=== PATIENT | male | born 2000 | race Caucasian/White ===

== ENCOUNTER 2025-01-30 10:53 | Emergency (ER) | payer OTHER, SELFPAY ==
[2025-01-30 11:03] VITALS: BP 135/74; PULSE 88; RESP 20; TEMP 36.5; O2SAT 98
--- NOTE | 2025-01-30 11:31 | ED_ITS ---
HPI - URI/Sore Throat General Chief Complaint: Upper Respiratory Infection Stated Complaint: Stopped Up Time Seen by Provider: 01/30/25 11:25 Source: patient, RN notes reviewed and old records reviewed Mode of arrival: ambulatory Limitations: no limitations History of Present Illness HPI Narrative: 24 year old male presents to [facility] care with complaints of over 1 week duration of cough with expectoration of yellow sputum, nasal congestion and drainage with sinus pressure and some pain to his face. Patient reports no know fevers chills or sweats. Patient reports that he has been taking DayQuil,NyQuil and Mucinex for his symptoms. MD elicited complaint: cough, rhinorrhea, nasal congestion and sinus pain Onset (ago): week(s) (over1 week) Severity: moderate Description of mucous: yellow Able to tolerate fluids by mouth: Yes Treatments prior to arrival: other (DayQuil and Mucinex) Related Data Allergies Allergy/AdvReac Type Severity Reaction Status Date / Time No Known Allergies Allergy Verified 01/30/25 11:07 Review of Systems Review of Systems: CONSTITUTIONAL: Reports malaise, chills, sweats, no known fever. EYES: Denies visual changes, redness, or discharge. ENT: Reports rhinorrhea, congestion, sinus pain, no otalgia and no sore throat. CARDIOVASCULAR: Denies chest pain, palpitations, or edema. RESPIRATORY: Reports productive cough.? Denies dyspnea. GASTROINTESTINAL: Denies abdominal pain, nausea, vomiting, diarrhea SKIN: Denies rash or itching. MUSCULOSKELETAL: Denies myalgia. NEUROLOGIC: Denies headache. All systems reviewed & are unremarkable except as noted in HPI and below PMFSH Surgical History Surgical History History of tonsillectomy History of surgery on lower extremity right leg for spiral fracture Social History Social History Smoking status: Current every day smoker Tobacco type: e-cigarettes/vaping Alcohol intake: current Alcohol use details: social Substance use type: does not use Living arrangements: with family Gender identity (if verbalized by the patient): Male Comments At time of signature, agree with nursing past medical, surgical, social and family history. There is no relevant family history pertinent to the presenting complaint Exam Narrative: GENERAL: Well-appearing, well-nourished, and in no acute distress. HEAD: Normocephalic EYES: PERRLA, conjunctivae clear ENT: Nares red, turbinates edematous and erythematous, yellowish discharge. Mucous membranes moist. TM pearly last with dull light reflex bilaterally; no tragal tenderness. Oropharynx erythematous without lesions. Tonsils not present and throat without exudate, no drooling, no hoarseness, no trismus, uvula midl ine.post nasal drainage NECK: Supple. No lymphadenopathy CHEST: Clear to auscultation, breath sounds equal. No wheezing, rhonchi, rales, or stridor. No respiratory distress, speaks in full sentences.cough productive at times SAO2 98% on room air, no tachypnea noted HEART: Regular rate and rhythm. No murmur heard. SKIN: Warm, dry, no rash. NEURO: Alert and oriented x3. PSYCH: Normal mood and affect Course Course Emergency Course: Patient is aware of diagnosis, understands and agrees to treatment plan.? Anticipatory guidance given.? Patient agrees to follow-up as directed and is aware of reasons to seek care at the emergency department. Portions of this record may have been created with voice recognition software Level of Care: Express Care Visit Vital Signs Vital signs: Vital Signs Temperature 36.5 C 01/30/25 11:03 Pulse Rate 88 01/30/25 11:03 Respiratory Rate 20 01/30/25 11:03 Blood Pressure 135/74 01/30/25 11:03 Pulse Oximetry 98 01/30/25 11:03 Oxygen Delivery Room Air 01/30/25 11:03 Temperature 36.5 C 01/30/25 11:03 Pulse Rate 88 01/30/25 11:03 Respiratory Rate 20 01/30/25 11:03 Blood Pressure 135/74 01/30/25 11:03 Pulse Oximetry 98 01/30/25 11:03 Oxygen Delivery Room Air 01/30/25 11:03 Reviewed MDM - URI/Sore Throat MDM Narrative Medical decision making narrative: Differential diagnosis considered: Spring virus, strep pharyngitis, allergic r hinitis, upper respiratory tract infection, sinusitis, rhinosinusitis, nasopharyngitis. viral pharyngitis, otitis media, otitis externa, pneumonia, bronchitis, viral cough syndrome, viral syndrome, and influenza.? Exam findings show no acute concerns or changes; patient is non-toxic appearing and is in no distress.? Patient is appropriate for outpatient treatment and follow-up. Differential Diagnosis Differential diagnosis: Likely upper respiratory infection, sinusitis, viral infection, bronchitis and other (acute cough) Medical Records Attestation: I reviewed the patient's medical records. Lab Data Attestation: I reviewed the patient's lab results. Critical Care Time Critical Care Time Critical Care Time: No Discharge Plan Discharge Clinical Impression: Acute cough Sinusitis Qualifiers: Sinusitis location: pansinusitis Chronicity: acute Recurrence: not specified as recurrent Qualified Code(s): J01.40 - Acute pansinusitis, unspecified Patient Disposition: Home Condition: Stable Instructions: Antibiotic Form, Sinusitis (ED) Additional Instructions: Increase fluids especially juices and water Viob-azj-mdvgcig cough and cold medicine of your choice for your symptoms My Zyrtec Claritin or Abi daily may include plain Sudafed in a.m. Steroids as directed--take with food heat to the face 20-30 minutes 4-6 times a day for pain Salt water gargles, throat lozenges or throat sprays as desired Antibiotic as directed--finished the medication If your symptoms persist, change or worsen significantly before you can contact your personal physician then please, without delay, go to the emergency department for further evaluation. Follow-up with PCP in 7-10 days or sooner if needed Follow up with PCP soon in regards to your blood pressure which is elevated above threshold for referral. Blood pressure above 120/80 may indicate pre- hypertension. 135/74 Patient Language: [place] Citizen Prescriptions: New amoxicillin-pot clavulanate 875-125 mg tablet 1 tablet PO Q12H Qty: 20 0RF Rx Instructions: take all doses with food recommend taking probiotic while on this medication prednisone 20 mg tablet 20 mg PO BID Qty: 10 0RF Follow-up/Referrals: UNKNOWN,DOCTOR [Primary Care Provider] - Time of Disposition: 11:49 Quality Serjio Coma Scale Eyes: Open Verbal: Oriented and Alert Motor: Follows Commands Serjio Coma Total Score: 15
--- OUTSIDE RECORDS SUMMARY | 2025-01-30 12:09 | XMS_ITS | Encounter Summary ---
Author Organization [facility] Address [address] [place] [address] Care Team Providers Care Assignment Manager Name Role Phone Davion Moya DO Primary Care Provider Shantelle Herzog MD Primary Care Provider [phone] Encounter Details Date Type Department Care Team (Late st Contact Info) Description 09/17/2004 Historical Encounter Global Iain Gamez DO [address] [place] [address] Social History Tobacco Use Types Packs/Day Years Used Date Smoking Tobacco: Never Assessed Sex and Gender Information Value Date Recorded Sex Assigned at Not on file Gender Identity Not on file Sexual Orientation Not on file documented as of this encounter Plan of Treatment Not on file documented as of this encounter Visit Diagnoses Not on filedocumented in this encounter Care Teams Assignment Manager Relationship Specialty Start Date End Date Davion Moya DO PCP - General 09/24/09 04/26/24 Shantelle Muniz MD [address] [place] [address] PCP - General 06/22/08 09/23/09 documented as of this encounter
--- OUTSIDE RECORDS SUMMARY | 2025-01-30 12:09 | XMS_ITS | Encounter Summary ---
Author Organization [facility] Address [address] [place] [address] Care Team Providers Care Bingo Caller Name Role Phone Davion Moya DO Primary Care Provider Shantelle Herzog MD Primary Care Provider [phone] Encounter Details Date Type Department Care Team (Late st Contact Info) Description 10/23/2004 Historical [place] [facility] [address] [facility] [place] [address] Social History Tobacco Use Types Packs/Day Years Used Date Smoking Tobacco: Never Assessed Sex and Gender Information Value Date Recorded Sex Assigned at Not on file Gender Identity Not on file Sexual Orientation Not on file documented as of this encounter Plan of Treatment Not on file documented as of this encounter Visit Diagnoses Not on filedocumented in this encounter Care Teams Bingo Caller Relationship Specialty Start Date End Date Davion Moya DO PCP - General 09/24/09 04/26/24 Shantelle Muniz MD [address] [place] [address] PCP - General 06/22/08 09/23/09 documented as of this encounter
--- OUTSIDE RECORDS SUMMARY | 2025-01-30 12:09 | XMS_ITS | Encounter Summary ---
Author Organization [facility] Address [address] [place] [address] Care Team Providers Care Liaison Officer Name Role Phone Davion Moya DO Primary Care Provider Shantelle Herzog MD Primary Care Provider [phone] Encounter Details Date Type Department Care Team (Late st Contact Info) Description 12/25/2007 Historical [place] [address] [place] [address] Social History Tobacco Use Types Packs/Day Years Used Date Smoking Tobacco: Never Assessed Sex and Gender Information Value Date Recorded Sex Assigned at Not on file Gender Identity Not on file Sexual Orientation Not on file documented as of this encounter Plan of Treatment Not on file documented as of this encounter Visit Diagnoses Not on filedocumented in this encounter Care Teams Liaison Officer Relationship Specialty Start Date End Date Davion Moya DO PCP - General 09/24/09 04/26/24 Shantelle Muniz MD [address] [place] [address] PCP - General 06/22/08 09/23/09 documented as of this encounter
--- OUTSIDE RECORDS SUMMARY | 2025-01-30 12:09 | XMS_ITS | Encounter Summary ---
Author Organization [facility] Address [address] [place] [address] Care Team Providers Care Process Controller Name Role Phone Davion Moya DO Primary Care Provider Shantelle Herzog MD Primary Care Provider [phone] Encounter Details Date Type Department Care Team (Late st Contact Info) Description 07/03/2004 Historical Encounter Global Iain Gamez DO [address] [place] [address] Social History Tobacco Use Types Packs/Day Years Used Date Smoking Tobacco: Never Assessed Sex and Gender Information Value Date Recorded Sex Assigned at Not on file Gender Identity Not on file Sexual Orientation Not on file documented as of this encounter Plan of Treatment Not on file documented as of this encounter Visit Diagnoses Not on filedocumented in this encounter Care Teams Process Controller Relationship Specialty Start Date End Date Davion Moya DO PCP - General 09/24/09 04/26/24 Shantelle Muniz MD [address] [place] [address] PCP - General 06/22/08 09/23/09 documented as of this encounter
--- OUTSIDE RECORDS SUMMARY | 2025-01-30 12:09 | XMS_ITS | Encounter Summary ---
Author Organization [facility] Address [address] [place] [address] Care Team Providers Care Printing Sign Machine Operator Name Role Phone Davion Moya DO Primary Care Provider Kari gamble Encounter Details Date Type Department Care Team (Late st Contact Info) Description 02/01/2020 [facility] [address] [place] [address] Roxane Quiroga MD [address] [place] [address] Social History Tobacco Use Types Packs/Day Years Used Date Smoking Tobacco: Never Smokeless Tobacco: Never Alcohol Use Standard Drinks/Week Comments No 0 (1 standard drink = 0.6 oz pur e alcohol) Sex and Gender Information Value Date Recorded Sex Assigned at Not on file Gender Identity Not on file Sexual Orientation Not on file COVID-19 Exposure Response Date Recorded In the last month, have you been in contact with someone who was confirmed or suspected to have Coronavirus / COVID-19? No / Unsure 02/01/2020 1:59 PM EDT documented as of this encounter Miscellaneous Notes * Telephone Encounter - Baylee Álvarez - 02/01/2020 2:03 PM EDT Verbal consent obtained from Lili Carly for care/treatment and billing for the telehealth visit scheduled on 02/01/20. documented in this encounter Plan of Treatment Not on file documented as of this encounter Visit Diagnoses Not on filedocumented in this encounter Care Teams Printing Sign Machine Operator Relationship Specialty Start Date End Date Davion Moya DO PCP - General 09/24/09 04/26/24 documented as of this encounter
--- OUTSIDE RECORDS SUMMARY | 2025-01-30 12:09 | XMS_ITS | Encounter Summary ---
Author Organization [facility] Address [address] [place] [address] Care Team Providers Care Sofa Back Upholsterer Name Role Phone Davion Moya DO Primary Care Provider Shantelle Herzog MD Primary Care Provider Encounter Details Date Type Department Care Team (Late st Contact Info) Description 06/22/2008 Historical Encounter Global Shantelle Muniz MD [address] [employer] [place] [address] Social History Tobacco Use Types Packs/Day Years Used Date Smoking Tobacco: Never Assessed Sex and Gender Information Value Date Recorded Sex Assigned at Not on file Gender Identity Not on file Sexual Orientation Not on file documented as of this encounter Plan of Treatment Not on file documented as of this encounter Visit Diagnoses Not on filedocumented in this encounter Care Teams Sofa Back Upholsterer Relationship Specialty Start Date End Date Davion Moya DO PCP - General 09/24/09 04/26/24 Shantelle Muniz MD [address] [employer] [place] [address] PCP - General 06/22/08 09/23/09 documented as of this encounter
--- OUTSIDE RECORDS SUMMARY | 2025-01-30 12:09 | XMS_ITS | Encounter Summary ---
Author Organization [facility] Address [address] [place] [address] Care Team Providers Care Domestic Violence Advocate Name Role Phone Davion Moya DO Primary Care Provider Kari gamble Encounter Details Date Type Department Care Team (Late st Contact Info) Description 11/04/2017 Telephone Endoscopy [address] [place] [address] Nan Rivera RN Social History Tobacco Use Types Packs/Day Years Used Date Smoking Tobacco: Never Alcohol Use Standard Drinks/Week Comments [...] on filedocumented in this encounter Care Teams Domestic Violence Advocate Relationship Specialty Start Date End Date Davion Moya DO PCP - General 09/24/09 04/26/24 documented as of this encounter
--- OUTSIDE RECORDS SUMMARY | 2025-01-30 12:09 | XMS_ITS | Encounter Summary ---
Author Organization [facility] Address [address] [place] [address] Care Team Providers Care Reed Worker Name Role Phone Davion Moya DO Primary Care Provider Shantelle Herzog MD Primary Care Provider [phone] Encounter Details Date Type Department Care Team (Late st Contact Info) Description 09/06/2004 Historical Encounter Global Iain Gamez DO [address] [place] [address] Social History Tobacco Use Types Packs/Day Years Used Date Smoking Tobacco: Never Assessed Sex and Gender Information Value Date Recorded Sex Assigned at Not on file Gender Identity Not on file Sexual Orientation Not on file documented as of this encounter Plan of Treatment Not on file documented as of this encounter Visit Diagnoses Not on filedocumented in this encounter Care Teams Reed Worker Relationship Specialty Start Date End Date Davion Moya DO PCP - General 09/24/09 04/26/24 Shantelle Muniz MD [address] [place] [address] PCP - General 06/22/08 09/23/09 documented as of this encounter
--- OUTSIDE RECORDS SUMMARY | 2025-01-30 12:09 | XMS_ITS | Encounter Summary ---
Author Organization [facility] Address [address] [place] [id number] Care Team Providers Care Senior Portfolio Analyst Name Role Phone Davion Moya DO Primary Care Provider Shantelle Herzog MD Primary Care Provider [phone] Encounter Details Date Type Department Care Team (Late st Contact Info) Description 04/25/2004 Historical Encounter Global Irma Youngblood, LAUNCHMAN [address] [facility] [address] [place] [address] Social History Tobacco Use Types Packs/Day Years Used Date Smoking Tobacco: Never Assessed Sex and Gender Information Value Date Recorded Sex Assigned at Not on file Gender Identity Not on file Sexual Orientation Not on file documented as of this encounter Plan of Treatment Not on file documented as of this encounter Visit Diagnoses Not on filedocumented in this encounter Care Teams Senior Portfolio Analyst Relationship Specialty Start Date End Date Davion Moya DO PCP - General 09/24/09 04/26/24 Shantelle Muniz MD [address] [place] [address] PCP - General 06/22/08 09/23/09 documented as of this encounter
--- OUTSIDE RECORDS SUMMARY | 2025-01-30 12:09 | XMS_ITS | Encounter Summary ---
Author Organization [facility] Address [address] [place] [id number] Care Team Providers Care Green Tire Inspector Name Role Phone Davion Moya DO Primary Care Provider Shantelle Herzog MD Primary Care Provider [phone] Encounter Details Date Type Department Care Team (Late st Contact Info) Description 06/12/2004 Historical Encounter Global Irma Youngblood, RIDE ATTENDANT [address] [facility] [address] [place] [address] Social History Tobacco Use Types Packs/Day Years Used Date Smoking Tobacco: Never Assessed Sex and Gender Information Value Date Recorded Sex Assigned at Not on file Gender Identity Not on file Sexual Orientation Not on file documented as of this encounter Plan of Treatment Not on file documented as of this encounter Visit Diagnoses Not on filedocumented in this encounter Care Teams Green Tire Inspector Relationship Specialty Start Date End Date Davion Moya DO PCP - General 09/24/09 04/26/24 Shantelle Muniz MD [address] [place] [address] PCP - General 06/22/08 09/23/09 documented as of this encounter
--- OUTSIDE RECORDS SUMMARY | 2025-01-30 12:09 | XMS_ITS | Clinical Summary ---
Author Organization [facility] Address [address] [place] [address] Care Team Providers Care Vice President Medical Affairs Name Role Phone Unavailable Primary Care Provider Unavailabl e Allergies No known active allergies Medications Medication Sig Dispensed Refills Start Date End Date Status albuterol (PROVENTIL) 2.5 mg /3 mL (0.083 %) nebulizationIndicat ions:Bronchitis,Cou gh Take 3 mL by nebulization Every 4 hours as needed for Wheezing. 60 Vial 0 03/11/2012 Active triamcinolone (KENALOG) 0.1 % creamIndications:Rh us dermatitis Apply to rash 2 times per day 454 g 06/07/2019 Active predniSONE (DELTASONE) 20 mg tabletIndications:B ronchitis Take 2 Tabs by mouth Daily. 10 Tab 02/01/2020 Active levocetirizine (XYZAL) 5 mg tabletIndications:B ronchitis Take 5 mg by mouth Daily. 30 Each 02/01/2020 Active mupirocin (BACTROBAN) 2 % topical ointmentIndications :Open wound of finger, initial encounter Apply to affected area twice daily 15 g 03/20/2024 Active Active Problems Problem Noted Date Diagnosed Date Laceration of left lower extremity 03/13/2019 Left leg pain 03/13/2019 Left wrist pain 02/23/2019 AR (allergic rhinitis) 08/02/2013 Resolved Problems Problem Noted Date Diagnosed Date Resolved Date Acute right ankle pain 02/28/201701/31 Allergic 06/08/2009 08/02/2013 Immunizations Name Administration Dates Next Due FLUZONE .5mL QS FLU VACCINE 3yr+ SDS 08/25/2016, 12/19/2015 Influenza (whole) 08/27/2014 Tdap 03/20/2024 Family History Medical History Relation Name Comments Hypertension Paternal Grandfather Relation Name Status Comments Father Alive Maternal Grandfather Maternal Grandmother Mother Alive Paternal Grandfather Alive Paternal Grandmother Alive Social History Tobacco Use Types Packs/Day Years Used Date Smoking Tobacco: Never Smokeless Tobacco: Current Tobacco Cessation:Ready to Q uit: Not Asked; Counseling Given: Not Answered Comments:VAPE Alcohol Use Standard Drinks/Week Comments No 0 (1 standard drink = 0.6 oz pur e alcohol) [facility] Utilities Answer Date Recorded In the past 12 months has th e electric, gas, oil, or water company threatened to shut off services in your home? No 11/09/2023 Humiliation, Afraid, Rape, and Kick questionnair e Answer Date Recorded Within the last year, have y ou been afraid of your partner or ex-partner? No 11/09/2023 Emotionally Abused Not on file 11/09/2023 Physically Abused Not on file 11/09/2023 Sexually Abused Not on file 11/09/2023 PHQ-2 Answer Date Recorded PHQ-2 SCORE 0 11/09/2023 Hunger Vital Sign Answer Date Recorded Worried About Running Out of Food in the Last Ye ar Not on file 11/09/2023 Within the past 12 months, t he food you bought just didn't last and you didn't have money to get more. Never true 11/09/2023 PRAPARE - Transportation Answer Date Re corded In the past 12 months, has l ack of transportation kept you from medical appointments or from getting medications? No 11/09/2023 Lack of Transportation (Non-Medical) Not on file 11/09/2023 Housing Stability Vital Sign Answer Dougie e Recorded Unable to Pay for Housing in the Last Year Not o n file 11/09/2023 Number of Places Lived in the Last Year Not on f ile 11/09/2023 In the last 12 months, was t here a time when you did not have a steady place to sleep or slept in a group home (including now)? No 11/09/2023 Sex and Gender Information Value Date Recorded Sex Assigned at Not on file Gender Identity Not on file Sexual Orientation Not on file Last Filed Vital Signs Vital Sign Reading Time Taken Comments Blood Pressure 136/81 03/20/2024 2:13 PM EDT Pulse 91 03/20/2024 2:13 PM EDT Temperature 36.8 C (98.2 F) 03/20/2024 2:13 PM EDT Respiratory Rate 18 03/20/2024 2:13 PM EDT Oxygen Saturation 96% 03/20/2024 2:13 PM EDT Inhaled Oxygen Concentration - - Weight 88.5 kg (195 lb) 03/20/2024 2:13 PM EDT Height 182.9 cm (6') 03/20/2024 2:13 PM EDT Body Mass Index 26.45 03/20/2024 2:13 PM EDT Plan of Treatment Health Maintenance Due Date Last Done Comments HEP C SCREENING 2001 ANNUAL WELLNESS EXAM 07/04/2021 07/03/2020, 02/17/20 14 INFLUENZA VACCINE (#1) 2024 6, 12/19/2015, 08/27/2014 DTAP/TDAP/TD VACCINE (8 - Td or Tdap) 03/20/2034 03/20/2024, 02/16/2014, 05/24/2006, Additional history exists HIB VACCINE Completed 12/08/2002, 02/16, 01/02/2002 HEP A VACCINE Completed 05/23/2019, 06/01/2018 ROTOVIRUS VACCINE Aged Out No longer eligible based on patient's age to complete this topic
--- OUTSIDE RECORDS SUMMARY | 2025-01-30 12:09 | XMS_ITS | Encounter Summary ---
Author Organization [facility] Address [address] [id number] Care Team Providers Care Photo Graphics Librarian Name Role Phone Davion Moya DO Primary Care Provider Shantelle Herzog MD Primary Care Provider [phone] Encounter Details Date Type Department Care Team (Late st Contact Info) Description 05/01/2004 Historical Encounter Global Patricio Alonzo Social History Tobacco Use Types Packs/Day Years Used Date Smoking Tobacco: Never Assessed Sex and Gender Information Value Date Recorded Sex Assigned at Not on file Gender Identity Not on file Sexual Orientation Not on file documented as of this encounter Plan of Treatment Not on file documented as of this encounter Visit Diagnoses Not on filedocumented in this encounter Care Teams Photo Graphics Librarian Relationship Specialty Start Date End Date Davion Moya DO PCP - General 09/24/09 04/26/24 Shantelle Muniz MD [facility] [address] [place] [id number] PCP - General 06/22/08 09/23/09 documented as of this encounter
--- OUTSIDE RECORDS SUMMARY | 2025-01-30 12:09 | XMS_ITS | Encounter Summary ---
Author Organization [facility] Address [address] [place] [address] Care Team Providers Care Tool Machinist Name Role Phone Davion Moya DO Primary Care Provider Shantelle Herzog MD Primary Care Provider [phone] Encounter Details Date Type Department Care Team (Late st Contact Info) Description 2001 Historical Encounter Global Yvette Mario MD [address] [place] [address] Social History Tobacco Use Types Packs/Day Years Used Date Smoking Tobacco: Never Assessed Sex and Gender Information Value Date Recorded Sex Assigned at Not on file Gender Identity Not on file Sexual Orientation Not on file documented as of this encounter Plan of Treatment Not on file documented as of this encounter Visit Diagnoses Not on filedocumented in this encounter Care Teams Tool Machinist Relationship Specialty Start Date End Date Davion Moya DO PCP - General 09/24/09 04/26/24 Shantelle Muniz MD [address] [place] [address] PCP - General 06/22/08 09/23/09 documented as of this encounter
--- OUTSIDE RECORDS SUMMARY | 2025-01-30 12:09 | XMS_ITS ---
Author Name [facility] Organization Unknown Care Team Organization Name Specialty Phone Email Start Date End [facility] 01/2001/20/2019
--- OUTSIDE RECORDS SUMMARY | 2025-01-30 12:09 | XMS_ITS | Encounter Summary ---
Author Organization [facility] Address [address] [place] [address] Care Team Providers Care Website Project Manager Name Role Phone Davion Moya DO Primary Care Provider Shantelle Herzog MD Primary Care Provider [phone] Encounter Details Date Type Department Care Team (Late st Contact Info) Description 09/06/2003 Historical Encounter Global Brayan Saleh APRN [address] [place] [address] Social History Tobacco Use Types Packs/Day Years Used Date Smoking Tobacco: Never Assessed Sex and Gender Information Value Date Recorded Sex Assigned at Not on file Gender Identity Not on file Sexual Orientation Not on file documented as of this encounter Plan of Treatment Not on file documented as of this encounter Visit Diagnoses Not on filedocumented in this encounter Care Teams Website Project Manager Relationship Specialty Start Date End Date Davion Moya DO PCP - General 09/24/09 04/26/24 Shantelle Muniz MD [address] [place] [address] PCP - General 06/22/08 09/23/09 documented as of this encounter
--- OUTSIDE RECORDS SUMMARY | 2025-01-30 12:09 | XMS_ITS | Encounter Summary ---
Author Organization [facility] Address [address] [place] [address] Care Team Providers Care Director Furniture Name Role Phone Davion Moya DO Primary Care Provider Shantelle Herzog MD Primary Care Provider [phone] Encounter Details Date Type Department Care Team (Late st Contact Info) Description 04/02/2007 Historical Encounter Global Shantelle Muniz MD [address] [place] [address] Social History Tobacco Use Types [...] on filedocumented in this encounter Care Teams Director Furniture Relationship Specialty Start Date End Date Davion Moya DO PCP - General 09/24/09 04/26/24 Shantelle Muniz MD [address] [place] [address] PCP - General 06/22/08 09/23/09 documented as of this encounter
--- OUTSIDE RECORDS SUMMARY | 2025-01-30 12:09 | XMS_ITS | Encounter Summary ---
Author Organization [facility] Address [address] [place] [address] Care Team Providers Care Oral Health Therapist Name Role Phone Davion Moya DO Primary Care Provider Shantelle Herzog MD Primary Care Provider [phone] Encounter Details Date Type Department Care Team (Late st Contact Info) Description 04/26/2004 Historical Encounter Global Raciel Aguirre DO Social History Tobacco Use Types Packs/Day Years Used Date Smoking Tobacco: Never Assessed Sex and Gender Information Value Date Recorded Sex Assigned at Not on file Gender Identity Not on file Sexual Orientation Not on file documented as of this encounter Plan of Treatment Not on file documented as of this encounter Visit Diagnoses Not on filedocumented in this encounter Care Teams Oral Health Therapist Relationship Specialty Start Date End Date Davion Moya DO PCP - General 09/24/09 04/26/24 Shantelle Muniz MD [facility] [place] [address] PCP - General 06/22/08 09/23/09 documented as of this encounter
--- OUTSIDE RECORDS SUMMARY | 2025-01-30 12:16 | XMS_ITS | Clinical Summary ---
[facility] 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 RAD (reactive airway disease) 03/10/2011 Immunizations Immunization Administration Dates Next Due DTaP vaccine 05/24/2006, 3,05/26/2002,03/09,01/02/2002 Hepatitis B vaccine 12/08/2002,03/09/2002,2001 Hib vaccine 12/08/2002,03/09/2002,01/02/2002 MMR, PRIORIX, M-M-R II, (age 12m+), SC, 0.5mL 05/24/2006,02/06/2003 Meningococcal ACWY, MENACTRA (MenACWY-D), (age 9m-55y), IM, 0.5mL 02/16/2014 Pneumococcal Vaccine 12/08/2002,05/26/20 02,03/09/2002,01/02 Poliovirus, IPOL, (age 6w+), SC/IM, 0.5mL 05/24/2006,05/26/2002,03/09/2002,01/02 TDaP, ADACEL (age 10y-64y), BOOSTRIX (age 10y+), IM, 0.5mL 02/16/2014 Varicella, VARIVAX, (age 12m +), SC, 0.5mL 02/16/2014,12/08/2002 Social History Tobacco Use Types Packs/Day Years Used Date Smoking Tobacco: Never Assessed Sex and Gender Information Value Date Recorded Sex Assigned at Not on file Legal Sex Male 9:16 PM EST Gender Identity Not on file Sexual Orientation Not on file Last Filed Vital Signs Vital Sign Reading Time Taken Comments Blood Pressure 112/72 10/09/2014 1:37 PM EST Pulse 105 10/09/2014 1:37 PM EST Temperature - - Respiratory Rate - - Oxygen Saturation - - Inhaled Oxygen Concentration - - Weight 56.2 kg (124 lb) 10/09/2014 1:37 PM EST Height 165.7 cm (5' 5.25 ) 10/09/2014 1:37 PM ES T Body Mass Index 20.48 10/09/2014 1:37 PM EST Plan of Treatment Not on file Care Teams Sql Report Analyst Relationship Specialty Start Date End Date Maye Gamboa DO PCP - General 02/15/14
== END 2025-01-30 11:58 | disposition home or self-care (01) ==
PROVIDERS: Emergency Provider Registered Nurse
DX: R05.1 Acute cough (principal); J01.40 Acute pansinusitis, unspecified; F17.290 Nicotine dependence, other tobacco product, uncomplicated
CPT/HCPCS: 99203; G0463